=== PATIENT | male | born 1980 | race African-American/Black ===

== ENCOUNTER → 2017-07-14 08:46 | Outpatient (CLI) | payer MEDICAID, SELFPAY ==
[2017-07-14 10:07] LABS: Hematocrit 42.7 % (40-54); Mean Corp Hgb Conc 32.8 g/gl (32-36); Mean Corpuscular Hgb 29.2 pg (27.0-32.0); Mean Platelet Vol. 10.2 fl (6.2-12.0); Platelet Count 240 K/mm3 (150-450); RBC Distribution Width SD 42.3 fl (35.1-43.9); White Blood Count 6.1 K/mm3 (4.4-11.0)
[2017-07-14 10:10] LABS: Scan Indicated on CBC? Y/N NO
[2017-07-14 10:43] LABS: AST(SGOT) 16 U/L (15-37); Alanine Aminotransfer ALT/SGPT 13 U/L (16-61); Albumin, Serum 3.5 g/dL (3.2-5.0); Alkaline Phosphatase 69 U/L (45-117); Anion Gap 8 (5-15); BUN 13 mg/dL (7-18); BUN/Creat Ratio 13.4 RATIO (10-20); Bilirubin, Direct 0.06 mg/dL (0.00-0.30); Calcium,Total 8.7 mg/dL (8.5-10.1); Chloride 106 mmol/L (98-107); Cholesterol 163 mg/dL (200); Creatinine, Serum 0.97 mg/dL (0.70-1.30); EST Glomerular Filtration Rate 94 mL/min (>60); Est Glom Filt Rate - Afr Amer 113 mL/min (>60); Globulin 4.3 g/dL (2.2-4.2); Glucose 81 mg/dL (74-106); High Density Lipoprotein 39 mg/dL; Protein, Total 7.8 g/dL (6.4-8.2); Sodium Level 141 mmol/L (136-145); Triglycerides 81 mg/dL; Very Low Density Lipoprotein 16 mg/dL (5-40)
[2017-07-16 09:05] LABS: HIV-1 RNA by PCR, Quant. 1580 copies/mL (.); LOG10 HIV-1 RNA 3.199 (.)
[2017-07-17 03:07] LABS: QNTFERON TB Ag Minus Nil Value 0 IU/mL (.); QNTFERON TB Ag Value 0.03 IU/mL (.); QNTFERON TB Mitogen Value > 10.00 IU/mL (.); QNTFERON TB Nil Value 0.03 IU/mL (.)
[2017-07-17 11:31] LABS: QNTIFERON TB Gold Negative (Negative)
[2017-07-20 14:07] LABS: Absolute CD4 Helper 200 /uL (359-1519); Basophils (Absolute) 0 x10E3/uL (0.0-0.2); Eosinophils 4 % (Not Estab.); Eosinophils (Absolute) 0.2 x10E3/uL (0.0-0.4); Hematocrit 39.7 % (37.5-51.0); Hemoglobin 12.1 g/dL (13.0-17.7); Immature Granulocytes 0 % (Not Estab.); Immature Granulocytes Absolute 0 x10E3/uL (0.0-0.1); Lymphs 33 % (Not Estab.); Lymphs (Absolute) 2.2 x10E3/uL (0.7-3.1); MCHC 30.5 g/dL (31.5-35.7); MCV 85 fL (79-97); Monocytes 8 % (Not Estab.); Monocytes (Absolute) 0.6 x10E3/uL (0.1-0.9); Neutrophils 55 % (Not Estab.); Neutrophils (Absolute) 3.6 x10E3/uL (1.4-7.0); Percent % CD4 Pos. Lymph. 9.1 % (30.8-58.5); Platelets 278 x10E3/uL (150-379); RBC Count 4.65 x10E6/uL (4.14-5.80); RDW 13.4 % (12.3-15.4); WBC Count 6.6 x10E3/uL (3.4-10.8)
[2017-07-21 11:57] LABS: HLA B27 Negative (.)
== END ==
PROVIDERS: Family Provider Internal Medicine; PCP Internal Medicine; Visit Provider Internal Medicine Infectious Disease
DX: B20 Human immunodeficiency virus [HIV] disease (principal)
CPT/HCPCS: 36415; 80048; 80061; 80076; 81374; 85027; 86361; 86480; 87536

== ENCOUNTER → 2017-08-28 08:02 | Outpatient (CLI) | payer MEDICAID, SELFPAY ==
[2017-09-02 13:46] LABS: HIV-1 RNA by PCR, Quant. 190 copies/mL (.); LOG10 HIV-1 RNA 2.279 (.)
== END ==
PROVIDERS: Family Provider Internal Medicine; PCP Internal Medicine; Visit Provider Internal Medicine Infectious Disease
DX: B20 Human immunodeficiency virus [HIV] disease (principal)
CPT/HCPCS: 36415; 87536

== ENCOUNTER → 2017-12-08 12:30 | Outpatient (CLI) | payer MEDICAID, SELFPAY ==
[2017-12-08 13:35] LABS: Hemoglobin 13.9 g/dl (13.0-16.5); Mean Corp Hgb Conc 33.1 g/gl (32-36); Mean Corpuscular Hgb 30.9 pg (27.0-32.0); Mean Corpuscular Volume 93.3 fL (80-94); Mean Platelet Vol. 10.3 fl (6.2-12.0); Platelet Count 271 K/mm3 (150-450); RBC Distribution Width CV 16.1 % (11.6-14.6); RBC Distribution Width SD 53.5 fl (35.1-43.9)
[2017-12-08 13:39] LABS: Scan Indicated on CBC? Y/N NO
[2017-12-08 13:49] LABS: AST(SGOT) 15 U/L (15-37); Alanine Aminotransfer ALT/SGPT 14 U/L (16-61); Albumin, Serum 3.2 g/dL (3.2-5.0); Alkaline Phosphatase 50 U/L (45-117); Anion Gap 11 (5-15); BUN 12 mg/dL (7-18); BUN/Creat Ratio 11.9 RATIO (10-20); Bilirubin, Direct 0.08 mg/dL (0.00-0.30); Calcium,Total 8.6 mg/dL (8.5-10.1); Chloride 107 mmol/L (98-107); Creatinine, Serum 1.01 mg/dL (0.70-1.30); EST Glomerular Filtration Rate 89 mL/min (>60); Est Glom Filt Rate - Afr Amer 108 mL/min (>60); Globulin 4.2 g/dL (2.2-4.2); Glucose 109 mg/dL (74-106); Potassium 3.7 mmol/L (3.5-5.1); Protein, Total 7.4 g/dL (6.4-8.2); Sodium Level 145 mmol/L (136-145)
[2017-12-11 11:46] LABS: HIV-1 RNA by PCR, Quant. 370 copies/mL (.); LOG10 HIV-1 RNA 2.568 (.)
[2017-12-14 14:07] LABS: Absolute CD4 Helper 317 /uL (359-1519); Basophils (Absolute) 0 x10E3/uL (0.0-0.2); Eosinophils 1 % (Not Estab.); Eosinophils (Absolute) 0.1 x10E3/uL (0.0-0.4); Hematocrit 41.7 % (37.5-51.0); Hemoglobin 13.9 g/dL (13.0-17.7); Immature Granulocytes 0 % (Not Estab.); Immature Granulocytes Absolute 0 x10E3/uL (0.0-0.1); Lymphs 23 % (Not Estab.); Lymphs (Absolute) 2.1 x10E3/uL (0.7-3.1); MCH 30.4 pg (26.6-33.0); MCHC 33.3 g/dL (31.5-35.7); MCV 91 fL (79-97); Monocytes 7 % (Not Estab.); Monocytes (Absolute) 0.6 x10E3/uL (0.1-0.9); Neutrophils 69 % (Not Estab.); Neutrophils (Absolute) 6.4 x10E3/uL (1.4-7.0); Percent % CD4 Pos. Lymph. 15.1 % (30.8-58.5); Platelets 301 x10E3/uL (150-379); RBC Count 4.57 x10E6/uL (4.14-5.80); RDW 16.3 % (12.3-15.4); WBC Count 9.2 x10E3/uL (3.4-10.8)
[2017-12-16 11:56] LABS: HLA B27 Negative (.)
== END ==
PROVIDERS: Family Provider Internal Medicine; PCP Internal Medicine; Visit Provider Internal Medicine Infectious Disease
DX: B20 Human immunodeficiency virus [HIV] disease (principal)
CPT/HCPCS: 36415; 80048; 80076; 81374; 85027; 86361; 87536

== ENCOUNTER → 2019-12-14 10:11 | Outpatient (CLI) | payer MEDICAID, SELFPAY ==
[2019-12-14 11:24] LABS: Hematocrit 42.6 % (40-54); Hemoglobin 13.8 g/dL (13.0-16.5); Mean Corp Hgb Conc 32.4 g/dL (32-36); Mean Corpuscular Hgb 30.9 pg (27.0-32.0); Mean Corpuscular Volume 95.5 fL (80-94); Mean Platelet Vol. 10.9 fl (6.2-12.0); Platelet Count 217 K/mm3 (150-450); RBC Distribution Width CV 12.3 % (11.6-14.6); RBC Distribution Width SD 43.3 fl (35.1-43.9); Red Blood Count 4.46 M/mm3 (4.6-6.2); White Blood Count 4.2 K/mm3 (4.4-11.0)
[2019-12-14 11:55] LABS: AST(SGOT) 19 U/L (15-37); Alanine Aminotransfer ALT/SGPT 16 U/L (16-61); Albumin, Serum 4.2 g/dL (3.2-5.0); Alkaline Phosphatase 59 U/L (45-117); Anion Gap 4 (5-15); BUN 17 mg/dL (7-18); BUN/Creat Ratio 18.4 RATIO (10-20); Bilirubin, Direct 0.11 mg/dL (0.00-0.30); Calcium,Total 9.3 mg/dL (8.5-10.1); Chloride 110 mmol/L (98-107); Creatinine, Serum 0.93 mg/dL (0.70-1.30); EST Glomerular Filtration Rate 98 mL/min (>60); Est Glom Filt Rate - Afr Amer 118 mL/min (>60); Globulin 4.1 g/dL (2.2-4.2); Glucose 94 mg/dL (74-106); Protein, Total 8.3 g/dL (6.4-8.2); Sodium Level 141 mmol/L (136-145)
[2019-12-15 12:07] LABS: Absolute CD4 Helper 245 /uL (359-1519); Basophils (Absolute) 0 x10E3/uL (0.0-0.2); Eosinophils 4 % (Not Estab.); Eosinophils (Absolute) 0.2 x10E3/uL (0.0-0.4); Hemoglobin 13.8 g/dL (13.0-17.7); Immature Granulocytes 0 % (Not Estab.); Lymphs 43 % (Not Estab.); Lymphs (Absolute) 1.9 x10E3/uL (0.7-3.1); MCH 30.8 pg (26.6-33.0); MCHC 32.9 g/dL (31.5-35.7); MCV 94 fL (79-97); Monocytes 8 % (Not Estab.); Monocytes (Absolute) 0.4 x10E3/uL (0.1-0.9); Neutrophils 45 % (Not Estab.); Percent % CD4 Pos. Lymph. 12.9 % (30.8-58.5); Platelets 233 x10E3/uL (150-450); RBC Count 4.48 x10E6/uL (4.14-5.80); RDW 12.6 % (11.6-15.4); WBC Count 4.4 x10E3/uL (3.4-10.8)
[2019-12-15 20:05] LABS: Immature Granulocytes Absolute 0 x10E3/uL (0.0-0.1)
[2019-12-16 15:30] LABS: HIV-1 RNA by PCR, Quant. < 20 copies/mL (.)
== END ==
PROVIDERS: Referring Provider Internal Medicine Infectious Disease; Visit Provider Internal Medicine Infectious Disease
DX: B20 Human immunodeficiency virus [HIV] disease (principal)
CPT/HCPCS: 36415; 80048; 80076; 85027; 86361; 87536

== ENCOUNTER → 2020-04-23 10:08 | Outpatient (CLI) | payer MEDICAID, SELFPAY ==
[2020-04-23 10:45] LABS: Hematocrit 39.9 % (40-54); Mean Corp Hgb Conc 32.6 g/dL (32-36); Mean Corpuscular Hgb 30.3 pg (27.0-32.0); Mean Platelet Vol. 10.6 fl (6.2-12.0); Platelet Count 193 K/mm3 (150-450); RBC Distribution Width CV 12.8 % (11.6-14.6); RBC Distribution Width SD 43.5 fl (35.1-43.9); Red Blood Count 4.29 M/mm3 (4.6-6.2); White Blood Count 4.5 K/mm3 (4.4-11.0)
[2020-04-23 11:26] LABS: AST(SGOT) 22 U/L (15-37); Alanine Aminotransfer ALT/SGPT 18 U/L (16-61); Albumin, Serum 3.9 g/dL (3.2-5.0); Alkaline Phosphatase 63 U/L (45-117); Anion Gap 6 (5-15); BUN 13 mg/dL (7-18); BUN/Creat Ratio 14.4 RATIO (10-20); Bilirubin, Direct 0.08 mg/dL (0.00-0.30); Calcium,Total 8.7 mg/dL (8.5-10.1); Chloride 109 mmol/L (98-107); EST Glomerular Filtration Rate 100 mL/min (>60); Est Glom Filt Rate - Afr Amer 121 mL/min (>60); Globulin 3.8 g/dL (2.2-4.2); Glucose 94 mg/dL (74-106); Potassium 3.8 mmol/L (3.5-5.1); Protein, Total 7.7 g/dL (6.4-8.2); Sodium Level 140 mmol/L (136-145)
[2020-04-24 12:08] LABS: Absolute CD4 Helper 238 /uL (359-1519); Basophils (Absolute) 0 x10E3/uL (0.0-0.2); Eosinophils 3 % (Not Estab.); Eosinophils (Absolute) 0.1 x10E3/uL (0.0-0.4); Hematocrit 39.3 % (37.5-51.0); Hemoglobin 13.2 g/dL (13.0-17.7); Immature Granulocytes 0 % (Not Estab.); Lymphs 36 % (Not Estab.); Lymphs (Absolute) 1.6 x10E3/uL (0.7-3.1); MCH 30.9 pg (26.6-33.0); MCHC 33.6 g/dL (31.5-35.7); MCV 92 fL (79-97); Monocytes 9 % (Not Estab.); Monocytes (Absolute) 0.4 x10E3/uL (0.1-0.9); Neutrophils 52 % (Not Estab.); Neutrophils (Absolute) 2.3 x10E3/uL (1.4-7.0); Percent % CD4 Pos. Lymph. 14.9 % (30.8-58.5); Platelets 196 x10E3/uL (150-450); RBC Count 4.27 x10E6/uL (4.14-5.80); RDW 12.7 % (11.6-15.4); WBC Count 4.4 x10E3/uL (3.4-10.8)
[2020-04-24 15:31] LABS: Immature Granulocytes Absolute 0 x10E3/uL (0.0-0.1)
[2020-04-25 08:58] LABS: HIV-1 RNA by PCR, Quant. 70 copies/mL (.); LOG10 HIV-1 RNA 1.845 (.)
== END ==
LOC: LAB.FUTURE 08-21 16:40 → LAB 08-22 05:57
PROVIDERS: Referring Provider Internal Medicine Infectious Disease; Visit Provider Internal Medicine Infectious Disease
DX: B20 Human immunodeficiency virus [HIV] disease (principal)
CPT/HCPCS: 36415; 80048; 80076; 85027; 86361; 87536

== ENCOUNTER → 2020-08-27 09:52 | Outpatient (CLI) | payer MEDICAID, SELFPAY ==
[2020-08-27 10:28] LABS: Hematocrit 42.1 % (40-54); Hemoglobin 13.8 g/dL (13.0-16.5); Mean Corp Hgb Conc 32.8 g/dL (32-36); Mean Corpuscular Hgb 30.8 pg (27.0-32.0); Mean Platelet Vol. 10.6 fl (6.2-12.0); Platelet Count 188 K/mm3 (150-450); RBC Distribution Width CV 12.8 % (11.6-14.6); RBC Distribution Width SD 44.1 fl (35.1-43.9); Red Blood Count 4.48 M/mm3 (4.6-6.2); White Blood Count 4.5 K/mm3 (4.4-11.0)
[2020-08-27 10:44] LABS: AST(SGOT) 23 U/L (15-37); Alanine Aminotransfer ALT/SGPT 20 U/L (16-61); Albumin, Serum 3.9 g/dL (3.2-5.0); Alkaline Phosphatase 63 U/L (45-117); Anion Gap 6 (5-15); BUN 16 mg/dL (7-18); BUN/Creat Ratio 17.4 RATIO (10-20); Bilirubin, Direct 0.13 mg/dL (0.00-0.30); Chloride 107 mmol/L (98-107); Creatinine, Serum 0.92 mg/dL (0.70-1.30); EST Glomerular Filtration Rate 98 mL/min (>60); Est Glom Filt Rate - Afr Amer 119 mL/min (>60); Glucose 98 mg/dL (74-106); Protein, Total 7.9 g/dL (6.4-8.2); Sodium Level 139 mmol/L (136-145)
[2020-08-28 14:09] LABS: Absolute CD4 Helper 270 /uL (359-1519); Basophils (Absolute) 0 x10E3/uL (0.0-0.2); Eosinophils 6 % (Not Estab.); Eosinophils (Absolute) 0.3 x10E3/uL (0.0-0.4); Hematocrit 42.2 % (37.5-51.0); Hemoglobin 14.1 g/dL (13.0-17.7); Immature Granulocytes 0 % (Not Estab.); Lymphs 35 % (Not Estab.); Lymphs (Absolute) 1.6 x10E3/uL (0.7-3.1); MCHC 33.4 g/dL (31.5-35.7); MCV 93 fL (79-97); Monocytes 9 % (Not Estab.); Monocytes (Absolute) 0.4 x10E3/uL (0.1-0.9); Neutrophils 50 % (Not Estab.); Neutrophils (Absolute) 2.3 x10E3/uL (1.4-7.0); Percent % CD4 Pos. Lymph. 16.9 % (30.8-58.5); Platelets 188 x10E3/uL (150-450); RBC Count 4.55 x10E6/uL (4.14-5.80); RDW 12.5 % (11.6-15.4); WBC Count 4.7 x10E3/uL (3.4-10.8)
[2020-08-29 13:37] LABS: HIV-1 RNA by PCR, Quant. < 20 copies/mL (.)
[2020-08-29 13:39] LABS: Immature Granulocytes Absolute 0 x10E3/uL (0.0-0.1)
== END ==
PROVIDERS: Referring Provider Internal Medicine Infectious Disease; Visit Provider Internal Medicine Infectious Disease
DX: B20 Human immunodeficiency virus [HIV] disease (principal)
CPT/HCPCS: 36415; 80048; 80076; 85027; 86361; 87536

== ENCOUNTER → 2021-11-04 | Outpatient (CLI) | payer MEDICAID, SELFPAY ==
[2021-11-04 11:12] LABS: Hematocrit 43.4 % (40-54); Hemoglobin 14.7 g/dL (13.0-16.5); Mean Corp Hgb Conc 33.9 g/dL (32-36); Mean Corpuscular Hgb 30.9 pg (27.0-32.0); Mean Corpuscular Volume 91.2 fL (80-94); Mean Platelet Vol. 10.6 fl (6.2-12.0); Platelet Count 191 K/mm3 (150-450); RBC Distribution Width CV 13.1 % (11.6-14.6); RBC Distribution Width SD 44.4 fl (35.1-43.9); Red Blood Count 4.76 M/mm3 (4.6-6.2); White Blood Count 4.3 K/mm3 (4.4-11.0)
[2021-11-04 11:41] LABS: Anion Gap 7 (5-15); BUN 14 mg/dL (7-18); BUN/Creat Ratio 15.6 RATIO (10-20); Calcium,Total 9.4 mg/dL (8.5-10.1); Chloride 106 mmol/L (98-107); EST Glomerular Filtration Rate 100 mL/min (>60); Est Glom Filt Rate - Afr Amer 121 mL/min (>60); Glucose 108 mg/dL (74-106); Potassium 3.8 mmol/L (3.5-5.1); Sodium Level 140 mmol/L (136-145)
[2021-11-05 12:09] LABS: Absolute CD4 Helper 290 /uL (359-1519); Basophils (Absolute) 0 x10E3/uL (0.0-0.2); Eosinophils 3 % (Not Estab.); Eosinophils (Absolute) 0.1 x10E3/uL (0.0-0.4); Hematocrit 43.2 % (37.5-51.0); Hemoglobin 14.4 g/dL (13.0-17.7); Immature Granulocytes 0 % (Not Estab.); Lymphs 33 % (Not Estab.); Lymphs (Absolute) 1.5 x10E3/uL (0.7-3.1); MCH 29.8 pg (26.6-33.0); MCHC 33.3 g/dL (31.5-35.7); MCV 89 fL (79-97); Monocytes 8 % (Not Estab.); Monocytes (Absolute) 0.4 x10E3/uL (0.1-0.9); Neutrophils 56 % (Not Estab.); Neutrophils (Absolute) 2.5 x10E3/uL (1.4-7.0); Percent % CD4 Pos. Lymph. 19.3 % (30.8-58.5); Platelets 203 x10E3/uL (150-450); RBC Count 4.83 x10E6/uL (4.14-5.80); RDW 13.1 % (11.6-15.4); WBC Count 4.4 x10E3/uL (3.4-10.8)
[2021-11-06 14:38] LABS: HIV-1 RNA by PCR, Quant. < 20 copies/mL (.)
[2021-11-07 08:39] LABS: Immature Granulocytes Absolute 0 x10E3/uL (0.0-0.1)
== END | disposition home or self-care (01) ==
LOC: LAB 10:34
PROVIDERS: Visit Provider Internal Medicine Infectious Disease
DX: B20 Human immunodeficiency virus [HIV] disease (principal)
CPT/HCPCS: 36415; 80048; 85027; 86361; 87536

== ENCOUNTER → 2022-05-19 | Outpatient (CLI) | payer MEDICAID, SELFPAY ==
[2022-05-19 08:46] LABS: Hematocrit 45.2 % (40-54); Hemoglobin 14.8 g/dL (13.0-16.5); Mean Corp Hgb Conc 32.7 g/dL (32-36); Mean Corpuscular Hgb 30.3 pg (27.0-32.0); Mean Corpuscular Volume 92.6 fL (80-94); Mean Platelet Vol. 10.8 fl (6.2-12.0); Platelet Count 200 K/mm3 (150-450); RBC Distribution Width CV 13.2 % (11.6-14.6); Red Blood Count 4.88 M/mm3 (4.6-6.2)
[2022-05-19 09:28] LABS: Anion Gap 8 (5-15); BUN 15 mg/dL (7-18); BUN/Creat Ratio 16.1 RATIO (10-20); Calcium,Total 9.4 mg/dL (8.5-10.1); Chloride 112 mmol/L (98-107); Cholesterol 228 mg/dL (200); Creatinine, Serum 0.93 mg/dL (0.70-1.30); EST Glomerular Filtration Rate 96 mL/min (>60); Est Glom Filt Rate - Afr Amer 116 mL/min (>60); Glucose 116 mg/dL (74-106); High Density Lipoprotein 55 mg/dL; Sodium Level 143 mmol/L (136-145); Triglycerides 77 mg/dL; Very Low Density Lipoprotein 15 mg/dL (5-40)
[2022-05-19 09:53] LABS: Hepatitis C Antibody Non-Reactive (Nonreactive); Syphilis Antibodies Non-reactive
[2022-05-20 15:08] LABS: Absolute CD4 Helper 365 /uL (359-1519); Basophils (Absolute) 0 x10E3/uL (0.0-0.2); Eosinophils 4 % (Not Estab.); Eosinophils (Absolute) 0.2 x10E3/uL (0.0-0.4); Hemoglobin 15.2 g/dL (13.0-17.7); Immature Granulocytes 0 % (Not Estab.); Lymphs 37 % (Not Estab.); Lymphs (Absolute) 1.9 x10E3/uL (0.7-3.1); MCH 30.3 pg (26.6-33.0); MCHC 34.5 g/dL (31.5-35.7); MCV 88 fL (79-97); Monocytes 8 % (Not Estab.); Monocytes (Absolute) 0.4 x10E3/uL (0.1-0.9); Neutrophils 51 % (Not Estab.); Neutrophils (Absolute) 2.6 x10E3/uL (1.4-7.0); Percent % CD4 Pos. Lymph. 19.2 % (30.8-58.5); Platelets 209 x10E3/uL (150-450); RBC Count 5.01 x10E6/uL (4.14-5.80); WBC Count 5.1 x10E3/uL (3.4-10.8)
[2022-05-20 18:23] LABS: Immature Granulocytes Absolute 0 x10E3/uL (0.0-0.1)
[2022-05-27 17:26] LABS: HIV-1 RNA by PCR, Quant. < 20 copies/mL (.)
== END | disposition home or self-care (01) ==
LOC: LAB 07:47
PROVIDERS: Referring Provider Internal Medicine Infectious Disease; Visit Provider Internal Medicine Infectious Disease
DX: B20 Human immunodeficiency virus [HIV] disease (principal)
CPT/HCPCS: 36415; 80048; 80061; 85027; 86361; 86780; 86803; 87536

== ENCOUNTER → 2022-12-17 | Outpatient (CLI) | payer SELFPAY ==
[2022-12-17 10:13] LABS: Hemoglobin 14.2 g/dL (13.0-16.5); Mean Corp Hgb Conc 32.3 g/dL (32-36); Mean Corpuscular Hgb 29.6 pg (27.0-32.0); Mean Corpuscular Volume 91.9 fL (80-94); Mean Platelet Vol. 10.5 fl (6.2-12.0); Platelet Count 210 K/mm3 (150-450); RBC Distribution Width CV 13.5 % (11.6-14.6); RBC Distribution Width SD 46.3 fl (35.1-43.9); Red Blood Count 4.79 M/mm3 (4.6-6.2); White Blood Count 5.2 K/mm3 (4.4-11.0)
[2022-12-17 10:43] LABS: AST(SGOT) 23 U/L (15-37); Alanine Aminotransfer ALT/SGPT 25 U/L (16-61); Albumin, Serum 3.5 g/dL (3.2-5.0); Alkaline Phosphatase 59 U/L (45-117); Anion Gap 6 (5-15); BUN 18 mg/dL (7-18); BUN/Creat Ratio 15.8 RATIO (10-20); Bilirubin, Direct 0.07 mg/dL (0.00-0.30); Chloride 111 mmol/L (98-107); Creatinine, Serum 1.14 mg/dL (0.70-1.30); EST Glomerular Filtration Rate 76 mL/min (>60); Est Glom Filt Rate - Afr Amer 91 mL/min (>60); Globulin 4.1 g/dL (2.2-4.2); Glucose 113 mg/dL (74-106); Potassium 4.2 mmol/L (3.5-5.1); Protein, Total 7.6 g/dL (6.4-8.2); Sodium Level 141 mmol/L (136-145)
[2022-12-18 15:08] LABS: Absolute CD4 Helper 386 /uL (359-1519); Basophils (Absolute) 0 x10E3/uL (0.0-0.2); Eosinophils 3 % (Not Estab.); Eosinophils (Absolute) 0.2 x10E3/uL (0.0-0.4); Hematocrit 41.6 % (37.5-51.0); Immature Granulocytes 0 % (Not Estab.); Immature Granulocytes Absolute 0 x10E3/uL (0.0-0.1); Lymphs 41 % (Not Estab.); MCH 29.6 pg (26.6-33.0); MCHC 33.7 g/dL (31.5-35.7); MCV 88 fL (79-97); Monocytes 8 % (Not Estab.); Monocytes (Absolute) 0.4 x10E3/uL (0.1-0.9); Neutrophils 48 % (Not Estab.); Neutrophils (Absolute) 2.3 x10E3/uL (1.4-7.0); Percent % CD4 Pos. Lymph. 19.3 % (30.8-58.5); Platelets 205 x10E3/uL (150-450); RBC Count 4.73 x10E6/uL (4.14-5.80); RDW 13.1 % (11.6-15.4); WBC Count 4.8 x10E3/uL (3.4-10.8)
[2022-12-19 02:08] LABS: HIV-1 RNA by PCR, Quant. 200 copies/mL (.); LOG10 HIV-1 RNA 2.301 (.)
== END | disposition home or self-care (01) ==
PROVIDERS: Referring Provider Internal Medicine Infectious Disease; Visit Provider Internal Medicine Infectious Disease
DX: B20 Human immunodeficiency virus [HIV] disease (principal)
CPT/HCPCS: 36415; 80048; 80076; 85027; 86361; 87536

== ENCOUNTER → 2023-07-06 | Outpatient (CLI) | payer MEDICAID, SELFPAY ==
[2023-07-06 10:30] LABS: Hematocrit 41.2 % (40-54); Hemoglobin 13.6 g/dL (13.0-16.5); Mean Corpuscular Hgb 29.9 pg (27.0-32.0); Mean Corpuscular Volume 90.5 fL (80-94); Mean Platelet Vol. 10.6 fl (6.2-12.0); Platelet Count 208 K/mm3 (150-450); RBC Distribution Width CV 12.9 % (11.6-14.6); RBC Distribution Width SD 42.5 fl (35.1-43.9); Red Blood Count 4.55 M/mm3 (4.6-6.2); White Blood Count 4.8 K/mm3 (4.4-11.0)
[2023-07-06 10:53] LABS: Anion Gap 3 (5-15); BUN 13 mg/dL (7-18); Calcium,Total 9.2 mg/dL (8.5-10.1); Chloride 112 mmol/L (98-107); EST Glomerular Filtration Rate 88 mL/min (>60); Est Glom Filt Rate - Afr Amer 106 mL/min (>60); Glucose 105 mg/dL (74-106); Potassium 3.8 mmol/L (3.5-5.1); Sodium Level 141 mmol/L (136-145)
[2023-07-06 11:09] LABS: Syphilis Antibodies Non-reactive
[2023-07-07 13:08] LABS: Absolute CD4 Helper 449 /uL (359-1519); Basophils (Absolute) 0 x10E3/uL (0.0-0.2); Eosinophils 2 % (Not Estab.); Eosinophils (Absolute) 0.1 x10E3/uL (0.0-0.4); Hematocrit 40.9 % (37.5-51.0); Hemoglobin 13.8 g/dL (13.0-17.7); Immature Granulocytes 0 % (Not Estab.); Immature Granulocytes Absolute 0 x10E3/uL (0.0-0.1); Lymphs 47 % (Not Estab.); Lymphs (Absolute) 2.2 x10E3/uL (0.7-3.1); MCH 30.2 pg (26.6-33.0); MCHC 33.7 g/dL (31.5-35.7); MCV 90 fL (79-97); Monocytes 8 % (Not Estab.); Monocytes (Absolute) 0.4 x10E3/uL (0.1-0.9); Neutrophils 43 % (Not Estab.); Percent % CD4 Pos. Lymph. 20.4 % (30.8-58.5); Platelets 214 x10E3/uL (150-450); RBC Count 4.57 x10E6/uL (4.14-5.80); RDW 12.9 % (11.6-15.4); WBC Count 4.7 x10E3/uL (3.4-10.8)
[2023-07-08 17:07] LABS: HIV-1 RNA by PCR, Quant. < 20 copies/mL (.)
== END | disposition home or self-care (01) ==
LOC: LAB 09:33
PROVIDERS: Referring Provider Internal Medicine Infectious Disease; Visit Provider Internal Medicine Infectious Disease
DX: B20 Human immunodeficiency virus [HIV] disease (principal)
CPT/HCPCS: 36415; 80048; 85027; 86361; 86780; 87536

== ENCOUNTER → 2024-05-02 | Outpatient (CLI) | payer MEDICAID, SELFPAY ==
[2024-05-02 09:35] LABS: Hemoglobin 14.3 g/dL (13.0-16.5); Mean Corp Hgb Conc 33.3 g/dL (32-36); Mean Corpuscular Hgb 29.8 pg (27.0-32.0); Mean Corpuscular Volume 89.6 fL (80-94); Mean Platelet Vol. 10.9 fl (6.2-12.0); Platelet Count 209 K/mm3 (150-450); RBC Distribution Width CV 12.6 % (11.6-14.6); RBC Distribution Width SD 41.2 fl (35.1-43.9); White Blood Count 4.6 K/mm3 (4.4-11.0)
[2024-05-02 10:25] LABS: Anion Gap 6 (5-15); BUN 15 mg/dL (7-18); Calcium,Total 9.1 mg/dL (8.5-10.1); Chloride 110 mmol/L (98-107); Cholesterol 196 mg/dL (200); Creatinine, Serum 0.79 mg/dL (0.70-1.30); EST Glomerular Filtration Rate 114 mL/min (>60); Est Glom Filt Rate - Afr Amer 138 mL/min (>60); Glucose 108 mg/dL (74-106); High Density Lipoprotein 57 mg/dL; Potassium 4.1 mmol/L (3.5-5.1); Sodium Level 139 mmol/L (136-145); Triglycerides 57 mg/dL; Very Low Density Lipoprotein 11 mg/dL (5-40)
[2024-05-02 10:54] LABS: Hepatitis C Antibody Non-Reactive (Nonreactive); Syphilis Antibodies Non-reactive
[2024-05-03 16:09] LABS: Absolute CD4 Helper 304 /uL (359-1519); Basophils (Absolute) 0 x10E3/uL (0.0-0.2); Eosinophils 2 % (Not Estab.); Eosinophils (Absolute) 0.1 x10E3/uL (0.0-0.4); Hematocrit 43.3 % (37.5-51.0); Hemoglobin 14.3 g/dL (13.0-17.7); Immature Granulocytes 0 % (Not Estab.); Immature Granulocytes Absolute 0 x10E3/uL (0.0-0.1); Lymphs 37 % (Not Estab.); Lymphs (Absolute) 1.7 x10E3/uL (0.7-3.1); MCH 29.3 pg (26.6-33.0); MCV 89 fL (79-97); Monocytes 8 % (Not Estab.); Monocytes (Absolute) 0.4 x10E3/uL (0.1-0.9); Neutrophils 53 % (Not Estab.); Neutrophils (Absolute) 2.4 x10E3/uL (1.4-7.0); Percent % CD4 Pos. Lymph. 17.9 % (30.8-58.5); Platelets 206 x10E3/uL (150-450); RBC Count 4.88 x10E6/uL (4.14-5.80); RDW 12.6 % (11.6-15.4); WBC Count 4.5 x10E3/uL (3.4-10.8)
[2024-05-04 03:07] LABS: HIV-1 RNA by PCR, Quant. 20 copies/mL (.); LOG10 HIV-1 RNA 1.301 (.)
== END | disposition home or self-care (01) ==
LOC: LAB 08:40
PROVIDERS: Referring Provider Internal Medicine Infectious Disease; Visit Provider Internal Medicine Infectious Disease
DX: Z21 Asymptomatic human immunodeficiency virus [HIV] infection status (principal)
CPT/HCPCS: 36415; 80048; 80061; 85027; 86361; 86780; 86803; 87491; 87536; 87591